=== PATIENT | female | born 1990 | race African-American/Black ===

== ENCOUNTER 2018-03-15 19:59 | Emergency (ER) | payer OTHER ==
[~2018-03-15] VITALS: Ht 160 cm; Wt 51.4 kg
[2018-03-15 22:45] VITALS: BP 94/58
== END 2018-03-15 22:45 | disposition home or self-care (01) ==
LOC: ED 19:59
DX: A08.4 Viral intestinal infection, unspecified (principal); Z98.890 Other specified postprocedural states
CPT/HCPCS: J1885; Q0162

== ENCOUNTER 2018-04-03 08:53 | Emergency (ER) | payer OTHER ==
[~2018-04-03] VITALS: Ht 160 cm; Wt 52.6 kg
[2018-04-03 08:58] VITALS: Ht 160 cm; Wt 52.6 kg
[2018-04-03 10:17] VITALS: BP 101/60
== END 2018-04-03 10:47 | disposition home or self-care (01) ==
LOC: ED 08:53
DX: J11.1 Influenza due to unidentified influenza virus with other respiratory manifestations (principal); N12 Tubulo-interstitial nephritis, not specified as acute or chronic; Z98.890 Other specified postprocedural states
CPT/HCPCS: 87804